=== PATIENT | female | born 1995 | race Hispanic/Latino ===

== ENCOUNTER 2020-02-16 22:41 | Observation (INO) | payer OTHER ==
[~2020-02-16] VITALS: Ht 152.4 cm; Wt 78.7 kg
[2020-02-16] MEDS ORDERED: ONDANSETRON HCL 4 MG/2 ML VIAL ONE (23:06)
[2020-02-16 23:34] LABS: BASOPHILS % (AUTO) 0.3 % (0.0-5.0); EOSINOPHILS % (AUTO) 1.8 % (0.0-8.0); HEMATOCRIT 39.5 % (36-48); LYMPHOCYTES % (AUTO) 32.4 % (21.0-51.0); MEAN CORPUSCULAR HGB CONC 30.9 g/dL (32.0-36.0); MEAN CORPUSCULAR VOLUME 84.2 fL (79-99); MONOCYTES % (AUTO) 8.3 % (3.0-13.0); NEUTROPHILS % (AUTO) 56.8 % (40.0-77.0); PLATELET COUNT (AUTO) 384 K/uL (130-400); RED BLOOD CELL COUNT(AUTO) 4.69 MIL/uL (4.00-5.50); RED CELL DISTRIBUTION WIDTH 14.2 % (11.0-15.5)
[2020-02-16 23:39] LABS: HCG,QUAL RESULT NEGATIVE (NEGATIVE)
[2020-02-16 23:40] LABS: APPEARANCE,URINE Clear (CLEAR); BILIRUBIN,URINE Negative (NEGATIVE); COLOR,URINE Yellow (YELLOW); GLUCOSE, URINE (UA) Negative (NEGATIVE); KETONES,URINE Negative (NEGATIVE); LEUKOCYTE ESTERASE ,URINE Negative (NEGATIVE); NITRATE,URINE Negative (NEGATIVE); OCCULT BLOOD,URINE Negative (NEGATIVE); PH,URINE 6.5 (5.0-8.0); PROTEIN,URINE Negative (NEGATIVE); UROBILINOGEN,URINE 0.2 mg/dL (0.2-1.0)
[2020-02-16 23:43] LABS: AMPHET/METH SCREEN,URINE NEGATIVE (NEGATIVE); BARBITURATE SCREEN, URINE NEGATIVE (NEGATIVE); BENZODIAZEPINES SCREEN,URINE NEGATIVE (NEGATIVE); CANNABINOID SCREEN,URINE POSITIVE (NEGATIVE); COCAINE SCREEN,URINE NEGATIVE (NEGATIVE); OPIATE SCREEN,URINE NEGATIVE (NEGATIVE); PHENCYCLIDINE SCREEN,URINE NEGATIVE (NEGATIVE)
[2020-02-16 23:49] LABS: ACETAMINOPHEN < 1 mcg/mL (10-30); ALCOHOL, BLOOD < 3 mg/dL (0-10); SALICYLATE < 2.8 mg/dL (2.8-20.0)
[2020-02-17 00:01] LABS: ALBUMIN 3.4 g/dL (3.5-5.0); BILIRUBIN,TOTAL 0.1 mg/dL (0.2-1.0); CREATININE 1.1 mg/dL (0.5-1.5); TOTAL PROTEIN, SERUM 7.1 g/dL (6.0-8.3)
[2020-02-17 00:05] LABS: POTASSIUM 2.7 mmol/L (3.5-5.1)
[2020-02-17] MEDS ORDERED: POTASSIUM CHLORIDE 20MEQ/100ML 100 ML IV ONE (00:10)
[2020-02-17 00:28] LABS: PLATELET MORPHOLOGY LARGE PLTS PRESENT
[2020-02-17] MEDS ORDERED: POTASSIUM BICARB/CIT AC 25 MEQ TABLET.EFF ONE (00:35)
[2020-02-17] MEDS ORDERED: POTASSIUM CHLORIDE 20 MEQ ERTAB PO PRN (03:45)
[2020-02-17] MEDS ORDERED: LACTULOSE 20 GM/30 ML UDCUP PO PRN (03:45)
[2020-02-17] MEDS ORDERED: ONDANSETRON HCL 4 MG/2 ML VIAL IV PRN (03:45)
[2020-02-17] MEDS ORDERED: ACETAMINOPHEN 325 MG TAB PO PRN ×2 (03:45)
[2020-02-17] MEDS ORDERED: POTASSIUM CHLORIDE 10% ELIXIR 20 MEQ/15 ML UDCUP PO PRN (03:45)
[2020-02-17] MEDS ORDERED: LIDOCAINE HCL-MPF 1% 2ML VIAL IV PRN (03:45)
[2020-02-17] MEDS ORDERED: POTASSIUM CHLORIDE 10MEQ/100ML 100 ML IV PRN (03:45)
[2020-02-17 05:10] VITALS: BP 92/50
[2020-02-17 05:44] LABS: BASOPHILS % (AUTO) 0.3 % (0.0-5.0); EOSINOPHILS % (AUTO) 0.1 % (0.0-8.0); HEMATOCRIT 35.7 % (36-48); LYMPHOCYTES % (AUTO) 8.6 % (21.0-51.0); MEAN CORPUSCULAR HEMOGLOBIN 26.2 pg (27.0-33.0); MEAN CORPUSCULAR HGB CONC 31.1 g/dL (32.0-36.0); MEAN CORPUSCULAR VOLUME 84.2 fL (79-99); MONOCYTES % (AUTO) 4.7 % (3.0-13.0); NEUTROPHILS % (AUTO) 85.9 % (40.0-77.0); PLATELET COUNT (AUTO) 300 K/uL (130-400); RED BLOOD CELL COUNT(AUTO) 4.24 MIL/uL (4.00-5.50); RED CELL DISTRIBUTION WIDTH 14.2 % (11.0-15.5); WHITE BLOOD COUNT (AUTO) 15.7 K/uL (4.8-10.8)
[2020-02-17 05:51] LABS: CREATININE 0.9 mg/dL (0.5-1.5); POTASSIUM 4.5 mmol/L (3.5-5.1)
[2020-02-17 08:49] VITALS: BP 98/57
[2020-02-17] MEDS ORDERED: FAMOTIDINE 20MG TAB 20 MG TAB PO SCH (09:00)
[2020-02-17 11:40] VITALS: BP 124/75
[2020-02-17 11:42] VITALS: BP 99/52
[2020-02-17] MEDS ORDERED: SERT50TA12 PO (15:03)
[2020-02-17] MEDS ORDERED: D AM PO (15:03)
--- NOTE | 2020-02-17 15:58 | NUR ---
INITIAL: Met w pt this afternoon. She is alert and oriented x3. Pt mentions that prior to admission she was living w her parents. She is independent w ambulation and ADLs. Per pt she works @ the [employer]. Pt mentions that she feels safe and comfortable to return home at me. Per pt this is her first time using Marijuana. Advised pt regarding potential side effects and advised against future use. Pt verbalizes understanding. CM to continue to follow and wait for Md recommendations. Addendum: 02/17/20 at 1605 by SHEREE ANGEL CM Amended: Links added.
[2020-02-17 17:40] VITALS: BP 105/58
[2020-02-17 19:36] VITALS: BP 104/59
--- NOTE | 2020-02-17 19:55 | NUR ---
NOTE DR. FLORES HERE. SAYS HE HAS PLACED ORDERS IN COMPUTER FOR DISCHARGE FOR PATIENT. HE ALSO WENT INTO ROOM TO TELL HER.
--- NOTE | 2020-02-17 21:35 | NUR ---
NOTE PROVIDED PATIENT WITH DISCHARGE INFORMATION PACKET. HIGHLIGHTED AND POINTED TO HER WHERE SHE NEEDS TO CALL HER PRIMARY CARE PROVIDER ([facility]) ON WEDNESDAY TO MAKE AN APPOINTMENT AND TELL THEM SHE NEEDS A FOLLOW UP IN 1-2 WEEKS. SHE ACKNOWLEDGED UNDERSTANDING.
== END 2020-02-17 21:40 | disposition home or self-care (01) ==
LOC: EDH 22:41 → EDHIP 02-17 03:39 → 3BH 02-17 05:13
PROVIDERS: ADMIT Internal Medicine; ATTEND Internal Medicine
DX: F12.90 Cannabis use, unspecified, uncomplicated (principal); E87.6 Hypokalemia; G93.40 Encephalopathy, unspecified; D72.829 Elevated white blood cell count, unspecified; F41.9 Anxiety disorder, unspecified; F32.9 Major depressive disorder, single episode, unspecified
CPT/HCPCS: 36415 ×2; 70450; 71045; 80048; 80053; 80305; 81003; 81025; 83735; 85025 ×2; 93005; 99285; G0378 ×18; G0481; J2405; J3480